=== PATIENT | male | born 1960 ===

== ENCOUNTER 2020-11-26 06:29 | Inpatient (IN) | payer MEDICARE, OTHER ==
[~2020-11-26] VITALS: Ht 172.7 cm; Wt 72.6 kg
[2020-11-26 07:52] LABS: Source, Urine Clean Catch
[2020-11-26 08:12] LABS: BASOPHILS ABSOLUTE AUTO 0.04 K/mm3 (0.00-0.23); BASOPHILS PERCENT AUTO 1 % (0-2); Bilirubin, Urine Neg (Neg); Blood, Urine Neg (Neg); EOSINOPHILS PERCENT AUTO 1 % (0-6); Glucose Qualitative, Urine Neg (Neg); Hematocrit 43.4 % (37.0-53.0); Hemoglobin 13.9 g/dL (13.5-17.5); IMMATURE GRAN ABSOLUTE AUTO 0.03 K/mm3 (0.00-0.10); IMMATURE GRAN PERCENT AUTO 0 % (0-1); Ketones, Urine Neg (Neg); LYMPHOCYTES ABSOLUTE AUTO 2.38 K/mm3 (0.84-5.20); LYMPHOCYTES PERCENT AUTO 32 % (21-46); Leukocyte Esterase, Urine Neg (Neg); MONOCYTES ABSOLUTE AUTO 0.76 K/mm3 (0.16-1.47); MONOCYTES PERCENT AUTO 10 % (4-13); Mean Corpuscular HGB 28.4 pg (26.0-34.0); Mean Corpuscular Volume 89 fL (80-100); Mean Platelet Volume 10.1 fL (9.1-12.4); NEUTROPHILS ABSOLUTE AUTO 4.17 K/mm3 (1.96-9.15); NEUTROPHILS PERCENT AUTO 56 % (41-73); Nitrite, Urine Neg (Neg); Platelet Count 252 K/mm3 (150-400); Protein, Urine 1+ (Neg); RDW Coefficient Variation 13.9 % (11.7-14.2); RDW Standard Deviation 45.4 fL (35.1-46.3); Specific Gravity, Urine 1.015 (1.003-1.022); Urobilinogen, Urine NORM (Normal); White Blood Cell Count 7.48 K/mm3 (4.00-11.30)
[2020-11-26 08:13] LABS: Appearance, Urine Clear (Clear); Color, Urine Yellow (P-Yellow)
[2020-11-26 08:17] LABS: Alanine Aminotransfer (ALT/SGP 13 U/L (12-78); Albumin, Blood 3.5 g/dL (3.4-5.0); Albumin/Globulin Ratio 0.8 (0.8-1.8); Alk Phos 67 U/L (50-136); Anion Gap 3 mmol/L (6-16); Aspartate Aminotrans (AST/SGOT 24 U/L (12-37); Bilirubin, Total 0.4 mg/dL (0.1-1.0); Blood Urea Nitrogen 32 mg/dL (8-24); Bun/Creatinine Ratio 27.4 (12.0-20.0); CO2, Blood 29 mmol/L (21-32); Calcium, Blood 9.3 mg/dL (8.5-10.1); Chloride, Blood 105 mmol/L (98-108); Creatinine, Blood 1.17 mg/dL (0.60-1.20); Globulin, Blood 4.6 g/dL (2.2-4.0); Glomerular Filtration Rate >60 (60-); Glucose, Blood 114 mg/dL (70-99); Magnesium, Blood 2.2 mg/dL (1.6-2.4); Sodium, Blood 137 mmol/L (136-145); Total Protein, Blood 8.1 g/dL (6.4-8.2)
[2020-11-26] MEDS ORDERED: CARBIDOPA-LEVO1 EA16 PO (13:02)
[2020-11-26] MEDS ORDERED: PRAMIPEXOLE DI1.5 MG PO (13:02)
[2020-11-26] MEDS ORDERED: NASAL DECONGEST30 ML (20:20)
--- NOTE | 2020-11-26 22:18 | NUR ---
Patient and concerned that speech difficulty is getting worse tonight..Vital signs as follows; 105/59, HR 67, RR14 TEMP 97.8. Vitals are considerably lower than they were on admission. Patient was However very anxious on arrival, and stated he was just falling to sleep when his called us in just now. Will notify hospitalist of change
--- NOTE | 2020-11-27 05:23 | NUR ---
ELIN AND DEBBY WHO INTERPRETS FOR HIM AND IS HIS HISTORIAN, SLEPT WELL AFTER ADMISSION COMPLETED. BOTH EXPRESS GREAT CONCERN ABOUT RAPID CHANGE IN MOVEMENT AND MOBILITY OVER THE LAST 3 WEEKS. BOTH ARE CONVINCED THAT THE MIRAPEX HE HAD BEEN TAKING FOR YEARS IS WHAT CAUSED THIS ISSUE TO "SPRING UP". ABOUT ONE HOUR AFTER THEIR ARRIVAL, CALLED FRANTICALLY STATING THAT HIS SPEECH WAS WORSE THAN WHEN THEY GOT HERE. SHE INSISTED IT WAS THE MIRAPEX. BOTH AGREED THEY SHOULD SPEAK WITH THE HOSPITALIST IN THE AM PRIOR TO TAKING THE NEXT DOSE. BY THIS MORNING, ELIN WAS SMILING AND SPEAKING IN AN AUDIBLE BUT STILL GARBLED VOICE AGAIN. PATIENT ALSO REQUESTING AFRIN FOR HIS BASELINE CONGESTION UP TO TID INSTEAD OF BEDTIME PRN. EXPLAINED RISKS TO BLOOD PRESSURE AND INCREASING REBOUND CONGESTION, BUT HE IS STILL INSISTING. NO CHANGE IN LIMB MOBILITY THIS MORNING
--- NOTE | 2020-11-27 09:00 | NUR ---
PT DOES NOT SPEAK MACEDONIAN. IN ROOM AT BEDSIDE. SHE INTERPRETS WELL. PT DENIES PAIN. STATES BEEN "STIFF" FOR LAST FEW DAYS. CAN WIGGLE TOES SOME. NO MOVEMENT IN LEGS OR ARMS. UNABLE TO GRASP HANDS. NO CHEMICAL MANAGER. LIMBS FEEL STIFF AND WEIGHT, PT NOT USING MUSCLES TO MAKE OR RESIST ANY MOVEMENT. H/R REG, NO MURMER NOTED. NO TELE PER DR WHITE. LUNGS CLEAR, LIGHTLY DIM IN BASES. ON R.A. RESP EASY, UNLABORED. BT X4 LAST BM YEST. VOIDS INCONT AT THIS TIME. IS NOT NORMAL PER PT. STATES HAS NOT WALKED FOR A WEEK OR 10 DAYS. BELIEVES IS R/T CHANGE IN MEDS. BED IN LOW POSITION, CALL LITE IN REACH, CALLS APPROP.
--- NOTE | 2020-11-27 17:02 | NUR ---
PT PLEASANT TODAY. NO NEW COMPLAINTS TODAY. HEAD / NECK MORE MOBILE WITH TAKING OF MEDS PRESCRIBED. CONTINUES TO BE AT BEDSIDE AND AVAILABLE TO ANSWER AND INTERPRET/. SPOKE TO DR WHITE AT PT REQUEST TO CHANGE MIRAPEX TO BID NOT TID. DR AGREED TO CHANGE. PT CONTINUES TO BE INCONT B/B. TURNING Q2. VERY LITTLE SPEACH, ALMOST WHISPER. BED IN LOW POSITIOIN, CALL LITE IN REACH, AT BEDSIDE.
--- NOTE | 2020-11-27 22:39 | NUR ---
PAIN: PATIENT IS REPORTING NECK PAIN THAT HE TAKES MELOXICAM 15MG PRN AT HOME FOR. THIS MED IS NOT ON MED REC. DR MATT IS NOTIFIED AND ORDER FOR MELOXICAM 7.5 MG X1 IS OBTAINED AND MED IS GIVEN,
--- NOTE | 2020-11-28 05:25 | NUR ---
SHIFT SUMMARY: CALLS LITHOSTRIPPER TO ROOM. PATIENT IS HAVING HALLUCINATIONS, CONFUSION, EXTREME WEAKNESS AND PAIN IN BILAT LEGS AND NECK 05/06. PATIENT HAS NO MUSCLE TONEIN ALL EXTREMITIES. STATES" THIS IS THE SAME WHEN THIS ALL STARTED. HE WAS BETTER YESTERDAY AND NOW HE IS WORSE AGAIN." TO EARLY TO GIVE TYLENOL. DR GRANT IS NOTIFIED OF ABOVE INFORMATION AND ORDER TO CHANGE TYLENOL TO Q4 HOURS PRN WAS OBTAINED AND MED WAS GIVEN. INC. OF BOLWEL AND BLADDER. T&P Q2. PILLS ARE NOW CRUSHED IN APPLE SAUCE, PATIENT WAS CHEWING PILLS.
--- NOTE | 2020-11-28 13:33 | NUR ---
[facility] NEUROLOGIST HANNA LANDRY [phone]
--- NOTE | 2020-11-28 15:39 | NUR ---
MRI SCREENING FORM COMPLETED AND FAXED.
--- NOTE | 2020-11-29 05:44 | NUR ---
SHIFT SUMMARY AOX4, ANSWERS QUESTIONS APPROPRIATE ACCORDING TO WHO TRANSLATES FOR PT SPEAKS ZAMBIAN ONLY. VSS. TELE NSR. SLEPT WELL T/O NIGHT. REPORTS 5/10 PAIN IN NECK, DENIED NEED FOR TYLENOL & STATES PAIN IS BETTER THIS AM THEN LAST NIGHT. REPORTS N/T TO ALL EXTEMITIES, STATES HE IS ABLE TO FEEL TOUCH ON ALL EXTREMITIES. HAS VERY MINIMAL MOVEMENT c R INDEX FINGER & A FEW TOES, OTHERWISE PT IS COMPLETELY FLACCID. INCONT OF URINE, CHANGED PRN. REPORTS NO BM SINCE SATURDAY THIS AM & HAS THE URGE BUT IS UNABLE, WILL PASS ON PT MAY NEED BOWEL CARE MEDS. PLAN TO HAVE MRI OF CERVICAL SPINE THIS AM PER DR BROWN ORDER. THIS AM REPORTS SHE FEELS IS "MORE STIFF" THEN YESTERDAY & THAT DR BROWN STATED HE WANTED MIRAPEX DC'D, HOWEVER MED IS STILL IN EMAR, WILL INFORM ONCOMING DAY NURSE. CALL LIGHT IN REACH & ABLE TO CALL FOR PTS NEEDS. WILL MONITOR.
--- NOTE | 2020-11-29 15:41 | NUR ---
REPORT CALLED TO YESICA AT [facility] [phone]. BED [id number]
--- NOTE | 2020-11-29 16:06 | NUR ---
PATIENT TRANSFERRED TO [facility] USING [facility] AND TRANSPORTED TO [facility] VIA FLIGHT AT 1605
== END 2020-11-29 16:08 | disposition short-term general hospital (02) | DRG 552 ==
LOC: ER 06:29 → MEDS 15:37 → ERHOLD 15:37 → MEDS 19:40
PROVIDERS: Emergency Medicine; ADMIT Internal Medicine
DX: M47.22 Other spondylosis with radiculopathy, cervical region (principal); R44.3 Hallucinations, unspecified; G95.20 Unspecified cord compression; M47.12 Other spondylosis with myelopathy, cervical region; G20 Parkinson's disease; R32 Unspecified urinary incontinence; M43.6 Torticollis; T42.8X5A Adverse effect of antiparkinsonism drugs and other central muscle-tone depressants, initial encounter; Y92.9 Unspecified place or not applicable; I67.1 Cerebral aneurysm, nonruptured; M48.02 Spinal stenosis, cervical region
CPT/HCPCS: 36415; 70553; 72141; 80053; 83735; 85025; 96361; 96374; 96375; 97110; 97112; 97163; 97530; 99284-25; A9270; A9579; J1170; J1650; J2405; J7120

== ENCOUNTER → 2023-04-15 | Outpatient (CLI) | payer MEDICARE ==
[~2023-04-15] MED LIST: CARBIDOPA-LEVO1 EA16 PO; NASAL DECONGEST30 ML; PRAMIPEXOLE DI1.5 MG PO
[2023-04-16 10:27] LABS: Stool Occult Bld Immuno 1 Negative (NEGATIVE)
== END ==
LOC: LAB 09:30 → LAB SHORT 09:30
PROVIDERS: Family Medicine
DX: D64.9 Anemia, unspecified (principal)
CPT/HCPCS: 82274

== ENCOUNTER → 2023-12-04 | Outpatient (CLI) | payer MEDICARE ==
[2023-12-06 11:54] LABS: Stool Occult Bld Immuno 1 Negative (NEGATIVE)
== END | disposition home or self-care (01) ==
LOC: LAB 23:00 → LAB SHORT 23:00
PROVIDERS: Family Medicine
DX: R63.4 Abnormal weight loss (principal)
CPT/HCPCS: 82274

== ENCOUNTER 2024-02-23 10:14 | Inpatient (IN) | payer MEDICARE, OTHER ==
[~2024-02-23] VITALS: Ht 170.2 cm; Wt 65.8 kg
[2024-02-23 10:56] LABS: BASOPHILS ABSOLUTE AUTO 0.04 K/mm3 (0.00-0.23); BASOPHILS PERCENT AUTO 1 % (0-2); EOSINOPHILS ABSOLUTE AUTO 0.18 K/mm3 (0.00-0.68); EOSINOPHILS PERCENT AUTO 2 % (0-6); Hematocrit 32.3 % (37.0-53.0); Hemoglobin 10.7 g/dL (13.5-17.5); IMMATURE GRAN ABSOLUTE AUTO 0.03 K/mm3 (0.00-0.10); IMMATURE GRAN PERCENT AUTO 0 % (0-1); LYMPHOCYTES ABSOLUTE AUTO 1.97 K/mm3 (0.84-5.20); LYMPHOCYTES PERCENT AUTO 26 % (21-46); MONOCYTES PERCENT AUTO 19 % (4-13); Mean Corpuscular HGB 28.5 pg (26.0-34.0); Mean Corpuscular HGB Conc 33.1 g/dL (31.5-36.5); Mean Corpuscular Volume 86 fL (80-100); Mean Platelet Volume 8.8 fL (9.1-12.4); NEUTROPHILS ABSOLUTE AUTO 3.93 K/mm3 (1.96-9.15); NEUTROPHILS PERCENT AUTO 52 % (41-73); Platelet Count 205 K/mm3 (150-400); RDW Coefficient Variation 14.9 % (11.7-14.2); RDW Standard Deviation 47.1 fL (35.1-46.3); Red Blood Cell Count 3.75 M/mm3 (4.30-5.90); White Blood Cell Count 7.55 K/mm3 (4.00-11.30)
[2024-02-23 11:09] LABS: Source, Urine Clean Catch
[2024-02-23 11:15] LABS: Alanine Aminotransfer (ALT/SGP <6 U/L (12-78); Albumin, Blood 3.2 g/dL (3.4-5.0); Albumin/Globulin Ratio 0.8 (0.8-1.8); Alk Phos 50 U/L (50-136); Anion Gap 17 mmol/L (3-11); Aspartate Aminotrans (AST/SGOT 9 U/L (12-37); Bilirubin, Total 0.3 mg/dL (0.1-1.0); Blood Urea Nitrogen 79 mg/dL (8-24); Bun/Creatinine Ratio 12.3 (12.0-20.0); CO2, Blood 22 mmol/L (21-32); Chloride, Blood 96 mmol/L (98-108); Globulin, Blood 3.9 g/dL (2.2-4.0); Glomerular Filtration Rate 9 (60-); Glucose, Blood 109 mg/dL (70-99); Potassium, Blood 5.5 mmol/L (3.5-5.5); Sodium, Blood 129 mmol/L (136-145); Total Protein, Blood 7.1 g/dL (6.4-8.2)
[2024-02-23 11:19] LABS: Appearance, Urine Hazy (Clear); Bilirubin, Urine Neg (Neg); Blood, Urine 2+ (Neg); Color, Urine Yellow (P-Yellow); Glucose Qualitative, Urine Neg (Neg); Ketones, Urine Neg (Neg); Leukocyte Esterase, Urine Neg (Neg); Nitrite, Urine Neg (Neg); Protein, Urine Neg (Neg); Urobilinogen, Urine NORM (Normal)
[2024-02-23 11:30] LABS: White Blood Cells, Urine 0-2 /hpf (0-5)
[2024-02-23 11:31] LABS: Bacteria Mod /hpf; Squamous Epithelial Cells Rare /hpf (Few)
[2024-02-23] MEDS ORDERED: Acetaminophen 325 MG TABLET PO PRN (14:00)
[2024-02-23] MEDS ORDERED: NS 1,000 ML IV SCH (14:00)
[2024-02-23] MEDS ORDERED: ENTACAPONE200 M1 PO (15:20)
[2024-02-23] MEDS ORDERED: BUSP5 PO (15:20)
[2024-02-23 15:42] VITALS: BP 122/77
[2024-02-23 16:33] LABS: Eosinophils-Raw #,Urine 1
--- NOTE | 2024-02-23 18:40 | NUR ---
REPORT RECEIVED VERIFIED PT A/O X4 BUT HAS HARDF TIME COMMUNICATING DUE TO HIS PARKINSONS. AT BEDSIDE TO ASSIST WITH CARE. HAGAN DRAINING WELL. ADMISSION DONE. BED SET UP FOR SHE WILL BE STAYING THE NIGHT.
[2024-02-23 19:55] VITALS: BP 146/84
[2024-02-23] MEDS ORDERED: Entacapone 200 MG Tab PO SCH (21:00)
[2024-02-23] MEDS ORDERED: Levodopa/Carbidopa 250 / 25 MG 1 Tab PO SCH (21:00)
[2024-02-24 02:51] VITALS: BP 127/76
[2024-02-24 04:39] LABS: BASOPHILS ABSOLUTE AUTO 0.03 K/mm3 (0.00-0.23); BASOPHILS PERCENT AUTO 1 % (0-2); EOSINOPHILS ABSOLUTE AUTO 0.12 K/mm3 (0.00-0.68); EOSINOPHILS PERCENT AUTO 2 % (0-6); Hematocrit 31.6 % (37.0-53.0); Hemoglobin 10.3 g/dL (13.5-17.5); IMMATURE GRAN ABSOLUTE AUTO 0.02 K/mm3 (0.00-0.10); IMMATURE GRAN PERCENT AUTO 0 % (0-1); LYMPHOCYTES ABSOLUTE AUTO 1.88 K/mm3 (0.84-5.20); LYMPHOCYTES PERCENT AUTO 29 % (21-46); MONOCYTES ABSOLUTE AUTO 1.13 K/mm3 (0.16-1.47); MONOCYTES PERCENT AUTO 17 % (4-13); Mean Corpuscular HGB 28.5 pg (26.0-34.0); Mean Corpuscular HGB Conc 32.6 g/dL (31.5-36.5); Mean Corpuscular Volume 88 fL (80-100); Mean Platelet Volume 8.9 fL (9.1-12.4); NEUTROPHILS ABSOLUTE AUTO 3.33 K/mm3 (1.96-9.15); NEUTROPHILS PERCENT AUTO 51 % (41-73); Platelet Count 211 K/mm3 (150-400); RDW Coefficient Variation 14.9 % (11.7-14.2); RDW Standard Deviation 47.9 fL (35.1-46.3); Red Blood Cell Count 3.61 M/mm3 (4.30-5.90); White Blood Cell Count 6.51 K/mm3 (4.00-11.30)
[2024-02-24 05:27] LABS: Alanine Aminotransfer (ALT/SGP <6 U/L (12-78); Albumin/Globulin Ratio 0.8 (0.8-1.8); Alk Phos 46 U/L (50-136); Anion Gap 8 mmol/L (3-11); Aspartate Aminotrans (AST/SGOT 8 U/L (12-37); Bilirubin, Total 0.4 mg/dL (0.1-1.0); Blood Urea Nitrogen 49 mg/dL (8-24); Bun/Creatinine Ratio 14.5 (12.0-20.0); CO2, Blood 26 mmol/L (21-32); Calcium, Blood 8.4 mg/dL (8.5-10.1); Chloride, Blood 110 mmol/L (98-108); Creatinine, Blood 3.39 mg/dL (0.60-1.20); Globulin, Blood 3.8 g/dL (2.2-4.0); Glomerular Filtration Rate 19 (60-); Glucose, Blood 98 mg/dL (70-99); Potassium, Blood 4.7 mmol/L (3.5-5.5); Total Protein, Blood 6.8 g/dL (6.4-8.2)
[2024-02-24 05:29] LABS: Sodium, Blood 139 mmol/L (136-145)
--- NOTE | 2024-02-24 05:31 | NUR ---
SHIFT SUMMARY PT IS A&O, DIFFICULT TO ASSESS D/T MARTINIQUAIS SPEAKING ONLY. IS IN ROOM AND TRANSLATES. IS VERY ATTENTIVE TO PT. VSS ON ROOM AIR. PER TELEMETRY PT IS SR @ 71. DENIES PAIN. TOLERATING A RENAL DIET. HAGAN CATHETER DRAINING ADEQUATE AMOUNTS OF LLOYD COLORED URINE. NO BM THIS SHIFT. BED IN LOWEST POSITION, CALL LIGHT WITHIN REACH.
[2024-02-24 07:31] VITALS: BP 152/82
[2024-02-24] MEDS ORDERED: Dextrose 5% 1,000 ML IV SCH (08:40)
[2024-02-24] MEDS ORDERED: Heparin Sodium,Porcine 5,000 UNIT/0.5 ML SDV SC SCH (09:00)
[2024-02-24 15:28] VITALS: BP 163/75
--- NOTE | 2024-02-24 16:48 | NUR ---
SHIFT SUMMARY NO ACUTE EVENTS THIS SHIFT. PATIENT ONLY SPEAKS [place], UNABLE TO FULLY ASSESS ORIENTATION. PATIENT DENIED PAIN THROUGHOUT THE SHIFT. AND SON AT BEDSIDE T/O THE SHIFT. LUNG SOUNDS DIMINISHED THROUGHOUT. D5 AT 100 CURRENTLY INFUSING. HAGAN PATENT AND DRAINING CLEAR YELLOW URINE. PATIENT'S APPETITE AND ORAL HYDRATION NOTED TO BE FAIR. TURNED PATIENT Q2 HRS DURING THE SHIFT. PATIENT IS CURRENTLY WATCHING TV. CALL LIGHT IS WITHIN REACH.
[2024-02-24 19:32] VITALS: BP 149/83
[2024-02-25 02:49] VITALS: BP 138/89
--- NOTE | 2024-02-25 05:40 | NUR ---
SHIFT SUMMARY PT IS A&O, DIFFICULT TO ASSESS D/T DANISH SPEAKING ONLY. IS IN ROOM AND TRANSLATES. AT BEDSIDE T/O NOC AND IS VERY ATTENTIVE TO PT. VSS ON ROOM AIR. PER TELEMETRY PT IS SR IN THE 70'S. DENIES PAIN. TOLERATING A RENAL DIET, GOOD APPETITE. HAGAN CATHETER DRAINING ADEQUATE AMOUNTS OF YELLOW URINE. NO BM THIS SHIFT. BED IN LOWEST POSITION, CALL LIGHT WITHIN REACH.
[2024-02-25 05:45] LABS: BASOPHILS ABSOLUTE AUTO 0.05 K/mm3 (0.00-0.23); BASOPHILS PERCENT AUTO 1 % (0-2); EOSINOPHILS ABSOLUTE AUTO 0.12 K/mm3 (0.00-0.68); EOSINOPHILS PERCENT AUTO 2 % (0-6); Hematocrit 31.6 % (37.0-53.0); Hemoglobin 10.2 g/dL (13.5-17.5); IMMATURE GRAN ABSOLUTE AUTO 0.04 K/mm3 (0.00-0.10); IMMATURE GRAN PERCENT AUTO 1 % (0-1); LYMPHOCYTES ABSOLUTE AUTO 1.93 K/mm3 (0.84-5.20); LYMPHOCYTES PERCENT AUTO 29 % (21-46); MONOCYTES ABSOLUTE AUTO 1.18 K/mm3 (0.16-1.47); MONOCYTES PERCENT AUTO 18 % (4-13); Mean Corpuscular HGB 28.6 pg (26.0-34.0); Mean Corpuscular HGB Conc 32.3 g/dL (31.5-36.5); Mean Corpuscular Volume 89 fL (80-100); Mean Platelet Volume 9.8 fL (9.1-12.4); NEUTROPHILS ABSOLUTE AUTO 3.36 K/mm3 (1.96-9.15); NEUTROPHILS PERCENT AUTO 50 % (41-73); Platelet Count 234 K/mm3 (150-400); RDW Coefficient Variation 14.9 % (11.7-14.2); RDW Standard Deviation 47.9 fL (35.1-46.3); Red Blood Cell Count 3.57 M/mm3 (4.30-5.90); White Blood Cell Count 6.68 K/mm3 (4.00-11.30)
[2024-02-25 06:25] LABS: Bun/Creatinine Ratio 16.6 (12.0-20.0); Calcium, Blood 8.9 mg/dL (8.5-10.1); Creatinine, Blood 1.69 mg/dL (0.60-1.20); Potassium, Blood 4.8 mmol/L (3.5-5.5)
[2024-02-25 07:15] VITALS: BP 151/92
[2024-02-25 15:05] VITALS: BP 145/100
[2024-02-25] MEDS ORDERED: Acetaminophen650 M1 PO (15:30)
--- NOTE | 2024-02-25 17:55 | NUR ---
DISCHARGE: PT D/C @1750 VIA WHEELCHAIR WITH AND SON. STRAIGHT CATH COMPLETED PRIOR TO D/C WITH AN OUTPUT OF 1000. STRAIGHT CATH SUPPLIES SENT WITH PT AND INCLUDING VERBAL INSTRUCTIONS ON USE. NO NEW MEDICATIONS. HOME HEALTH REFERRAL IN PLACE. TELE SENT BACK. IV REMOVED BY CONTACT CENTER CONSULTANT W/O COMPLICATIONS.
--- NOTE | 2024-02-25 20:14 | NUR ---
REVIEWED INFO FOR PT AND PT'S SON R/T STRAIGHT CATH ORDERS/SUPPLIES
== END 2024-02-25 17:40 | disposition home health service (06) | DRG 683 ==
LOC: ER 10:14 → MEDS 13:57
PROVIDERS: Student in an Organized Health Care Education/Training Program; ADMIT Internal Medicine
DX: N17.9 Acute kidney failure, unspecified (principal); E87.1 Hypo-osmolality and hyponatremia; R33.9 Retention of urine, unspecified; E87.70 Fluid overload, unspecified; G20.A1 Parkinson's disease without dyskinesia, without mention of fluctuations; N18.30 Chronic kidney disease, stage 3 unspecified; Z79.899 Other long term (current) drug therapy; Z90.49 Acquired absence of other specified parts of digestive tract; Z98.1 Arthrodesis status; Z98.890 Other specified postprocedural states
CPT/HCPCS: 36415; 51702; 51798; 74176; 80048; 80053; 81001; 82570; 84295; 84300; 85025; 87077; 87086; 87186; 87205; 97116; 97162; 97530; 99285-25; A9270; J1644; J7030; J7070

== ENCOUNTER 2024-02-27 04:22 | Emergency (ER) | payer MEDICARE, OTHER ==
[~2024-02-27] VITALS: Ht 170.2 cm; Wt 63.5 kg
[~2024-02-27 04:22] MED LIST changes: +Acetaminophen650 M1 PO; +BUSP5 PO; +ENTACAPONE200 M1 PO
[2024-02-27] MEDS ORDERED: Lidocaine 2% Jelly Uro-Jet UR ONE (05:15)
[2024-02-27 05:55] LABS: Source, Urine Foley catheter
[2024-02-27 06:00] VITALS: BP 95/71
[2024-02-27 06:05] LABS: Appearance, Urine Clear (Clear); Bilirubin, Urine Neg (Neg); Blood, Urine 5+ (Neg); Color, Urine Yellow (P-Yellow); Glucose Qualitative, Urine Neg (Neg); Ketones, Urine Neg (Neg); Leukocyte Esterase, Urine 1+ (Neg); Nitrite, Urine Neg (Neg); Protein, Urine 1+ (Neg); Urobilinogen, Urine NORM (Normal); pH, Urine 6.5 (5.0-8.0)
[2024-02-27 06:12] LABS: Bacteria Few /hpf; Red Blood Cells, Urine 50-100 /hpf (0-2); Squamous Epithelial Cells Rare /hpf (Few)
== END 2024-02-27 06:25 | disposition home or self-care (01) ==
LOC: ER 04:22
PROVIDERS: Emergency Medicine
DX: R33.9 Retention of urine, unspecified (principal); Z79.899 Other long term (current) drug therapy; G20.A1 Parkinson's disease without dyskinesia, without mention of fluctuations
CPT/HCPCS: 51702; 81001; 87077; 87086; 87186; 99283